=== PATIENT | female | born 2000 | race Caucasian/White ===

== ENCOUNTER 2020-09-10 21:56 | Emergency (ER) | payer BC ==
[~2020-09-10] VITALS: Ht 170.2 cm; Wt 78.0 kg
[2020-09-10 22:21] VITALS: Ht 170.2 cm; Wt 78.0 kg
[2020-09-11 00:45] VITALS: BP 129/89
== END 2020-09-11 00:45 | disposition home or self-care (01) ==
LOC: ED 21:56
DX: S06.0X0A Concussion without loss of consciousness, initial encounter (principal); W18.09XA Striking against other object with subsequent fall, initial encounter; Y93.23 Activity, snow (alpine) (downhill) skiing, snowboarding, sledding, tobogganing and snow tubing; Y92.89 Other specified places as the place of occurrence of the external cause; Y99.8 Other external cause status